=== PATIENT | female | born 1985 | race Caucasian/White ===

== ENCOUNTER 2025-01-25 23:51 | Emergency (ER) | payer OTHER, SELFPAY ==
[2025-01-25 23:53] VITALS: BP 133/81; PULSE 99; RESP 18; TEMP 36.9; O2SAT 99; BMI 29.6
--- NOTE | 2025-01-26 00:30 | ED_ITS ---
HPI - General Adult General Date Seen: 01/26/25 Chief complaint: Ear/Nose/Throat Problem Stated complaint: Left ear ringing, loss of hearing Time Seen by Provider: 01/25/25 23:52 History of Present Illness HPI narrative: patient is a 39-year-old woman who presents for evaluation of her left ear. She says for the past 4-6 months she has been having problems with her ears. She has a history of psoriasis, has and has felt like she has psoriasis in her ears. They have felt irritated, sometimes painful, and swollen. She says that she uses Q-tips to scratch inside her ears. For the past couple of hours she says she has developed decreased hearing in the left ear associated with tinnitus. She also has pain in that ear, which seems to radiate into her jaw as well as behind the ear. She has not had fevers, has maybe had a little drainage from the ear and is worried that she might have ruptured her eardrum. She said she has had problems with reaming before, but the hearing loss is new. She does not recall her medicines but takes a couple for psoriasis and an antidepressant. Denies other significant medical history. Related Data Previous Rx's ?Medication ?Instructions ?Recorded [id number]-[id number]-[id number]-onzonm 3.3 4 drp Otic (ear-left) QID #10 mL 01/26/25 mg-3 mg-10 mg-0.5 mg/mL ear drops,susp (Cortisporin-TC) prednisone 20 mg tablet See Rx Instructions .Route 01/26/25 .COMPLEX #18 tabs Allergies Allergy/AdvReac Type Severity Reaction Status Date / Time No Known Drug Allergies Allergy Verified 01/25/25 23:57 PFSH PFS Social History Non-prescribed substance use: denies use Exam Narrative: Exam Narrative: Vital signs reviewed In general, alert, nontoxic woman. She looks comfortable at this time. Head: Normocephalic, atraumatic. Eyes: Pupils are equal reactive, sclera clear. ENT: The right canal and TM really look normal. On the left, there is a little bit of inflammation and mild swelling of the canal, there is a little bit of wax but certainly no impaction. The visualized eardrum looks normal, I do not see a perforation. I do not see significant rash, debris or drainage. The TM is normal in appearance. She notes decreased gross hearing in the left ear compared to the right. Dentition is intact without obvious tenderness or swelling. Neck: Supple, no adenopathy. Const: Vital Signs, click to edit/add: Vital Signs - 24 hr 01/25/25 23:53 Temperature 98.4 F Pulse Rate [Left P ulse Oximeter] 99 Respiratory Rate 18 Blood Pressure [Ri ght Upper Arm] 133/81 Pulse Oximetry 99 Oxygen Delivery Me thod Room Air Course Course ED Course: Discussed with her that I do not have a clear explanation for her tinnitus and hearing loss based on her exam. I would recommend that we put her on some prednisone to treat that portion of her symptoms in case that is separate from the more external ear symptoms that she has been having for the past 4-6 months. I will prescribe some antibiotic drops for the mild inflammatory stuff that I see in the left auditory canal. I recommended that she follow up with ENT and have auditory testing. Ibuprofen and/or Tylenol as needed for pain. Also recommended making an appointment with the dentist just to make sure the pain is not coming from a dental problem. Return any time for acute worsening or new symptoms. Vital Signs Vital signs: Initial Vital Signs Temperature 98.4 F 01/25/25 23:53 Temperature Source Temporal Artery Scan 01/25/25 23:53 Pulse Rate 99 01/25/25 23:53 Pulse Rhythm Regular 01/25/25 23:53 Respiratory Rate 18 01/25/25 23:53 Blood Pressure 133/81 01/25/25 23:53 Blood Pressure Mean 98 01/25/25 23:53 Blood Pressure Position Sitting 01/25/25 23:53 Pulse Oximetry 99 01/25/25 23:53 Oxygen Delivery Method Room Air 01/25/25 23:53 Vital Signs Temperature 98.4 F 01/25/25 23:53 Pulse Rate 99 01/25/25 23:53 Respiratory Rate 18 01/25/25 23:53 Blood Pressure 133/81 01/25/25 23:53 Pulse Oximetry 99 01/25/25 23:53 Oxygen Delivery Method Room Air 01/25/25 23:53 Temperature 98.4 F 01/25/25 23:53 Pulse Rate 99 01/25/25 23:53 Respiratory Rate 18 01/25/25 23:53 Blood Pressure 133/81 01/25/25 23:53 Pulse Oximetry 99 01/25/25 23:53 Oxygen Delivery Method Room Air 01/25/25 23:53 Discharge Plan Discharge Clinical Impression: Otitis externa, Hearing loss Patient Disposition: Home, Self-Care Condition: Stable Instructions: Swimmer's Ear (ED), Hearing Loss (ED) Additional Instructions: Cortisporin drops as prescribed. prednisone taper as follows: 3 tablets daily for 3 days, then 2 tablets daily for 3 days, then 1 tablet daily for 3 days. Given the hearing loss, I would recommend that you are followed up by ENT. You can call [phone] Dupont. ibuprofen 400 mg plus Tylenol 1000 mg 3 times daily as needed for pain. Take this with food to minimize stomach upset. Return any time for significantly worsening pain, fevers, or other new symptoms. Activity Level: No Restrictions Discharge Diet: Regular Prescriptions: New prednisone 20 mg tablet See Rx Instructions .ROUTE .COMPLEX Qty: 18 0RF Rx Instructions: 3 tabs daily for 3 days then 2 tabs daily for 3 days then 1 tab daily for 3 days Cortisporin-TC 3.3-3-10-0.5 mg/mL drops,suspension 4 drp Otic (ear-left) QID Qty: 10 0RF Stand Alone Forms: [employer] Info Instructions
--- OUTSIDE RECORDS SUMMARY | 2025-01-26 00:34 | XMS_ITS | Encounter Summary ---
Author Organization [facility] Address [address] [place] [address] Care Team Providers Care Materials Research Engineer Name Role Phone June Frye MD Primary Care Provider Kendy Mckeon PA-C Primary Care Provider + Manuel Kim MD Primary Care Provider Manuel Kim MD Unavailable Manuel Kim MD Unavailable Reason for Visit * Reason Onset Date Comments Refill Request 02/09/2010 Encounter Details Date Type Department Care Team (Late st Contact Info) Description 02/09/[address] [phone] June Frye MD [address] [place], [place] [phone] Refill Request Social History Tobacco Use Types Packs/Day Years Used Date Smoking Tobacco: Every Day Cigarettes 0.5 6 Comments:one or 2 a day, on chantax Alcohol Use Standard Drinks/Week Comments Yes 0 (1 standard drink = 0.6 oz pur e alcohol) 6-7 drinks/week Comments No Sex and Gender Information Value Date Recorded Sex Assigned at Not on file Legal Sex Female 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 Gender Identity Not on file Sexual Orientation Not on file 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 Not on file Not on file Not on file Not on file Not on file Not on file Not on file documented as of this encounter Miscellaneous Notes * Telephone Encounter - Jana Hartley - 02/10/2010 12:17 PM CDT Last PHQ-9 score on record= 9 PHQ-9 (scale: 0 to 3) 01/06/2009 No interest in doing things 2 Feeling Depressed 1 Trouble sleeping 0 Tired / No energy 1 No appetite or over-eating 2 Feeling bad about self 1 Trouble concentrating 1 Moving slow or restless 1 Suicidal thoughts 0 TOTAL SCORE-----> 9 Unable to fill per STO, will forward to provider for review. Jana Hartley RN * Telephone Encounter - Phyllis Gross - 02/09/2010 10:47 AM CDT Last office visit 01/06/09 last filled 01/24/10 Phyllis Gross CMA documented in this encounter Plan of Treatment Not on file documented as of this encounter Visit Diagnoses Diagnosis DEPRESSIVE DISORDER NEC Depressive disorder, not elsewhere classified documented in this encounter Care Teams Materials Research Engineer Relationship Specialty Start Date End Date June Frye MD [address] [place] [address] PCP - General 07/15/03 12/15/15 Kendy Mckeon PA-C [address] [place] [id number] PCP - General Physician Fur Glazer 12/16/15 07/19/16 Manuel Kim MD [address] [place] [id number] PCP - General Family Practice 07/20/16 Manuel Kim MD [address] [facility] [place] [id number] PCP - Assigned PCP 07/23/16 01/14/19 Manuel Kim MD [address] [facility] [place] [id number] Assigned PCP 07/23/16 03/05/21 documented as of this encounter
--- OUTSIDE RECORDS SUMMARY | 2025-01-26 00:34 | XMS_ITS | Clinical Summary ---
Author Organization [facility] Address [address] [address] Phone Care Team Providers Care Home Organizer Name Role Phone Choice, No Pcp-Patient Primary Care Provider Yvette vailable Allergies No known active allergies Medications albuterol HFA (Proair HFA, Ventolin HFA) 108 (90 Base) MCG/ACT inhalation aerosol Inhale 2 Puffs into the lungs four times a day as needed. 8 Active ALPRAZolam (Xanax) 0.5 MG tablet TAKE ONE (1) TABLET BY MOUTH ONCE A DAY, NEEDED FOR ANXIETY 0 Active lamoTRIgine (LaMICtal) 200 MG tablet Take 200 mg by mouth one time a day. 9 Active lisdexamfetami ne (VYVANSE) 40 MG capsule Take 40 mg by mouth every morning. Take in the morning with or without food; swallow capsule whole, do not chew. Active tretinoin (Retin-A) 0.01 % gel Apply topically at bedtime. 1 Active venlafaxine (Effexor-XR) 75 MG 24 hour extended release capsule Take 75 mg by mouth one time a day. 2 Active venlafaxine (Effexor-XR) 37.5 MG 24 hour extended release capsule Take 37.5 mg by mouth one time a day. 2 Active HYDROcodone-ac etaminophen (Hubbard) 5-325 MG oral tablet Take 1-2 Tablets by mouth every six hours as needed for Pain . Limit acetaminophen to 4000 mg per day from all sources. 10 Tablet 2 Active Active Problems Problem Noted Date Diagnosed Date Bipolar disorder 04/25/2022 Overview (04/25/2022): treated with celexa Chronic post-traumatic headache, not intractable 03/14/2019 Closed head injury with concussion 03/14/2019 Chronic bilateral low back pain with right-sided sciatica 08/05/2018 Neck pain, chronic 08/05/2018 Tobacco use disorder 08/05/2018 Migraine syndrome 04/09/2018 Moderate persistent asthma without complication 01/24/2017 Borderline personality disorder 12/16/2015 Depression, major, recurrent, moderate 2 JACOB (generalized anxiety disorder) 10/17/2012 Social History Tobacco Use Types Packs/Day Years Used Date Smoking Tobacco: Every Day Cigarettes Smokeless Tobacco: Never Alcohol Use Standard Drinks/Week Comments Not Currently 0 (1 standard drink = 0.6 oz pur e alcohol) Comments No Sex and Gender Information Value Date Recorded Sex Assigned at Not on file Legal Sex Female 4:47 PM CDT Gender Identity Not on file Sexual Orientation Not on file Obstetrics History Last Filed Vital Signs Vital Sign Reading Time Taken Comments Blood Pressure 126/82 06/16/2022 7:55 PM CDT Pulse 100 06/16/2022 7:55 PM CDT Temperature 36.5 C (97.7 F) 06/16/2022 7:55 PM CDT Respiratory Rate 18 06/16/2022 7:55 PM CDT Oxygen Saturation 99% 06/16/2022 7:55 PM CDT Inhaled Oxygen Concentration - - Weight 70.3 kg (155 lb) 06/16/2022 9:59 AM CDT Height 152.4 cm (5') 06/16/2022 9:59 AM CDT Body Mass Index 30.27 06/16/2022 9:59 AM CDT Plan of Treatment Health Maintenance Due Date Last Done Comments Cervical Cancer Screening 1985 Last pap w/ HPV Testing 1985 Last pap w/o HPV Testing 1985 ASTHMA CONTROL TEST 1990 Hepatitis B Vaccine (Standin g Order) (1 of 3 - 19+ 3-dose series) 02/02/2004 PERTUSSIS (Standing Order) 02/02/2004 Pneumococcal/PCV20 Vaccine: Pediatrics (2-5 yrs) and At-Risk Patients (6-49 yrs) (Standing Order) (1 of 2 - PCV) 02/02/2004 TETANUS (Standing Order) 02/02/2004 COVID-19 Vaccine ( - 2023-2 5 season) 2024 Influenza Vaccine Seasonal (Standing Order) (#1) 2024 HPV Vaccine (Standing Order) Aged Out No longer eligible based on patient's age to complete this topic Insurance MEDICA[place] [employer] [place] Care Teams Home Organizer Relationship Specialty Start Date End Date Choice, No Pcp-Patient PCP - General 06/16/22
--- OUTSIDE RECORDS SUMMARY | 2025-01-26 00:34 | XMS_ITS | Encounter Summary ---
Author Organization [facility] Address [address] [place] [address] Care Team Providers Care Public Address System Mechanic Name Role Phone Eliza Perez APRN, C.N.P. Primary Care Pro vider Reason for Visit * Reason Comments Med Refill Encounter Details Date Type Department Care Team (Late st Contact Info) Description 01/23/2025 Refill Department of Family Medicine in [place], [place] [address] [place] [phone] Eliza Perez APRN, C.N.P. [address] [place] [phone] Med Refill Social History Tobacco Use Types Packs/Day Years Used Date Smoking Tobacco: Some Days Cigarettes Passive Smoke Exposure: Current Smokeless Tobacco: Never Alcohol Use Standard Drinks/Week Comments Not Currently 0 (1 standard drink = 0.6 oz pur e alcohol) [facility] Utilities Answer Date Recorded In the past 12 months has [place], gas, oil, or water [employer] threatened to shut off services in your home? Yes 03/11/2024 PHQ-2 Answer Date Recorded PHQ-2 Score 2 03/11/2024 Exercise Vital Sign Answer Date Recorde d On average, how many days pe r week do you engage in moderate to strenuous exercise (like a brisk walk)? Patient declined On average, how many minutes do you engage in exercise at this level? Patient declined 03/11/2024 Hunger Vital Sign Answer Date Recorded Within the past 12 months, y ou worried that your food would run out before you got the money to buy more. Sometimes true Within the past 12 months, t he food you bought just didn't last and you didn't have money to get more. Sometimes true Depression Answer Date Recor ded PHQ-9 Total Score (max 27) 10 03/11 Nutrition Answer Date Recorded On average, how many serving s of fruits and vegetables do you eat per day (serving size is equal to 1 cup or approximately the size of a tennis ball)? 0-2 03/11/2024 Dental Answer Date Recorded Dental: Regular Dentist No 03/11/20 Employment Answer Date Recorded Employment status Employed and actively working without restrictions 03/11/2024 Housing Stability Answer Date Recorded What is your living situation today? I have a [facility] place to live 03/11/2024 Comments Unknown Sex and Gender Information Value Date Recorded Sex Assigned at Female 03/11/2024 1:36 PM CDT Legal Sex Female 3:11 PM CDT Gender Identity Female 03/11/2024 1:36 PM CDT Sexual Orientation Straight 03/11/2024 1: 36 PM CDT documented as of this encounter Miscellaneous Notes * Telephone Encounter - Liza Scott - 01/23/2025 12:16 PM CDT Recent Visits Date Type Provider Dept 07/08/24 Office Visit Prachi Emery APRN, C.N.P. [facility] 03/11/24 Comprehensive Visit Eliza Perez APRN, C.N.P. [facility] Showing recent visits within past 365 days with a meds authorizing provider and meeting all other requirements Future Appointments No visits were found meeting these conditions. Showing future appointments within next 90 days with a meds authorizing provider and meeting all other requirements documented in this encounter Plan of Treatment Not on file documented as of this encounter Visit Diagnoses Diagnosis Hemorrhoids documented in this encounter Additional Health Concerns Assessment Noted Time PHQ-9 Depression Total Score: 10 024 1:33 PM CDT documented as of this encounter Care Teams Public Address System Mechanic Relationship Specialty Start Date End Date Eliza Perez APRN, C.N.P. [address] [place] [phone] PCP - General Family Medicine 03/12/24 documented as of this encounter
--- OUTSIDE RECORDS SUMMARY | 2025-01-26 00:35 | XMS_ITS | Clinical Summary ---
Author Organization [facility] Address [address], [place] [address] Care Team Providers Care Checker Product Design Name Role Phone Gaby Villatoro APRN, WON Primary Care Provid er Source Comments You are receiving this document as you are listed as the primary care provider,follow-up provider, or the patient has been referred to you for consultation.This is in compliance with the Medicare andMedicaid EHR Incentive Program,which states Providers who transition their patient to another setting of careor provider of care or refers their patient to another provider of care shouldprovide summary care record for each transition of care or referral. [facility] Allergies No known active allergies Medications * This document contains information received from the source organization and may not represent a complete record from that organization. varenicline (AKA CHANTIX) 0.5 MG tabletIndicati ons:Tobacco abuse (HRC) Take 1 tablet by mouth 2 times daily. 60 tablet 0 3 Active fluticasone (AKA FLONASE) 50 MCG/ACT nasal solutionIndica tions:Rhinitis , allergic Place 1-2 sprays into each nostril daily (every 24 hours). 16 g 11 3 Active citalopram (AKA CELEXA) 40 MG tabletIndicati ons:Depression , major, recurrent, moderate (HRC) Take 1 tablet by mouth daily (every 24 hours). 90 tablet 4 3 Active montelukast (AKA SINGULAIR) 10 MG tabletIndicati ons:Reactive airway disease (HRC) Take 1 tablet by mouth every evening. 30 tablet 11 3 Active etonogestrel (NEXPLANON) 68 MG implant Inject 68 mg subcutaneously once. Active ALBUterol sulfate HFA 108 (90 BASE) MCG/ACT inhaler Inhale 1-2 Puffs every 4 hours as needed for Wheezing or Shortness of Breath (Take 1-2 puffs as instructed every 4 hours as needed.). 1 Inhaler 11 7 Active Active Problems Problem Noted Date Diagnosed Date Tobacco abuse 10/17/2012 JACOB (generalized anxiety disorder) 10/17/2012 Depression, major, recurrent, moderate 2 Asthma 09/13/2010 Overview (07/04/2017): LW Modifier: Intermittent ; Asthma Chronic Resolved Problems Problem Noted Date Diagnosed Date Resolved Date Supervision of normal first 11/15/2012 03/05/2013 Immunizations Immunization Administration Dates Next Due Flu Vac Preserv Free (3+yrs) 11/18/2012 Tdap 07/19/2017 Family History Relation Name Status Comments Father Alive Mother Alive Brother 1 Alive Brother 2 Alive Social History Tobacco Use Types Packs/Day Years Used Date Smoking Tobacco: Every Day Cigarettes Smokeless Tobacco: Never Tobacco Cessation:Ready to Q uit: No; Counseling Given: No Comments:Smoking History Packs/day: Alcohol Use Standard Drinks/Week Comments Yes 1.7 (1 standard drin k = 0.6 oz pure alcohol) Alcoholic Drinks/day: Amount:3-4 drinks; Freq:2-4/Month ; Comments No Sex and Gender Information Value Date Recorded Sex Assigned at Not on file Legal Sex Female 5:19 AM CDT Gender Identity Not on file Sexual Orientation Not on file 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 Not on file Not on file Last Filed Vital Signs Vital Sign Reading Time Taken Comments Blood Pressure 122/86 07/19/2017 10:39 AM CDT Pulse 101 07/19/2017 10:39 AM CDT Temperature 36.4 C (97.6 F) 07/19/2017 10:39 AM CDT Respiratory Rate - - Oxygen Saturation - - Inhaled Oxygen Concentration - - Weight 72.6 kg (160 lb) 07/19/2017 10:39 AM CDT Height 151.8 cm (4' 11.75) 07/03/2013 8:08 AM C DT Body Mass Index 31.51 07/03/2013 8:08 AM CDT Plan of Treatment Health Maintenance Due Date Last Done Comments Hep C Screening (Preventive Services) 1985 Adult Preventive Visit 2003 HepB (1) 02/02/2004 HPV Vaccine (3 - 3-dose series) 03/31/2009 01/06/2009, 05/23/2007 Cervical Cancer Screening Due 07/04/2013 07/03/2013 Asthma ACT (score of 20 or higher) 07/19/2018 07/19/2017 COVID-19 Vaccine ( - 2023-2 5 season) 2024 Influenza (#1) 2024 11/18/2012 DTaP/Tdap/Td (4 - Tdap) 07/19/2027 07/19/20 17, 05/18/2008, 05/26/1997 Zoster/Shingles (1 of 2) 2035 HepA Aged Out 01/06/2009, 05/23/2007 No longer eligible based on patient's age to complete this topic HIV Screening (Preventive Services) Completed 10/08/2020, 11/15/2012 Hib Aged Out No longer eligi ble based on patient's age to complete this topic IPV (Polio) Aged Out No longer eligi ble based on patient's age to complete this topic MCV4 Aged Out No longer eligi ble based on patient's age to complete this topic Meningococcal B Aged Out No longer el igible based on patient's age to complete this topic Pneumococcal Aged Out No longer eligi ble based on patient's age to complete this topic Procedures Procedure Name Priority Date/Time Associated Diagnosis Comments ANATOMICAL PATH LIQUID BASED Routine 07/03/2013 8:34 AM CDT HIV ANTIBODY Routine 11/15/2012 2:58 PM WAREHOUSE SHIPPER Special screening examination for other specified viral diseases Screening examination for venereal disease from Last 3 Months or Most Recently Relevant to Health Maintenance Results * Pap Smear (07/03/2013 8:34 AM CDT) 07/03/2013 8:34 AM CDT Narrative HP CONVERSION - 07/09/2013 11:04 AM CDT FINAL GYNECOLOGICAL CYTOLOGY REPORT Pathology #: [id number] Date Obtained: 07/03/2013 Date Received: 07/04/2013 INTERPRETATION/RESULTS: Negative for Intraepithelial Lesion or Malignancy COMMENTS: HPV results to follow. SPECIMEN ADEQUACY: Satisfactory for Evaluation. Endocervical cells/transformation zone component present. Verified on 07/09/2013 by TIM HERNANDEZ(ASCP) (electronic signature) CLINICAL NOTES: LMP: 06/24/13 LIQUID BASED PAP SMEAR SPECIMEN TYPE: CERVICAL & HPV REGARDLESS OF PAP RESULT PLEASE NOTE: The pap smear is a screening test designed to aid in the detection of cervical cancer and its precursor lesions. It is not a diagnostic procedure and should not be used as the sole means of detecting cervical cancer. Both false-positive and false-negative reports may occur. End of Report Gaby Villatoro APRN, CNP LAB_1 Deepali weir Result Performing Organization Address [facility] Co de Phone Number HP CONVERSION * HIV ANTIBODY (11/15/2012 2:58 PM WAREHOUSE SHIPPER) HIV 1/HIV 2 Non-React Non-Reacti ve HP CONVERSION 11/15/2012 2:58 PM WAREHOUSE SHIPPER 11/15/2012 9:14 PM WAREHOUSE SHIPPER Eliza Pantoja MD LAB_1 Final Result Performing Organization Address [facility] Co de Phone Number HP CONVERSION from Last 3 Months or Most Recently Relevant to Health Maintenance [place] [phone] Care Teams Checker Product Design Relationship Specialty Start Date End Date Gaby Villatoro, CHUCKING MACHINE SET UP OPERATOR, RN DERMATOLOGY [address] [place], [place] [phone] PCP - General 07/03/13
--- OUTSIDE RECORDS SUMMARY | 2025-01-26 00:35 | XMS_ITS | Clinical Summary ---
Author Organization [facility] Address [address] [place] [address] Care Team Providers Care Seo Associate Name Role Phone Eliza Perez APRN C.N.P. Primary Care Pro vider Source Comments Patient records contain information from all sites at [facility]. For routine questions regarding patient records, call [phone] during business hours, M-F 8:00 AM - 5:00 PM Central Time. Record requests for emergency care only can be directed to [phone] at any time.[facility] Allergies No known active allergies Medications ALPRAZolam (XANAX) 0.5 mg tablet Take 0.5 mg by mouth 2 (two) times a day as needed. 04/21/20 20 Active clobetasoL (TEMOVATE) 0.05 % ointment Apply 1 Application topically 2 (two) times a day as needed. 07/06/20 23 Active tretinoin (RETIN-A) 0.05 % cream Apply 1 Application topically at bedtime. 01/29/20 18 Active clindamycin (CLEOCIN T) 1 % lotion Apply 1 Application topically daily. Active fluocinonide (LIDEX) 0.05 % external solution Apply 1 Application topically daily. Active fluocinolone (DERMA-SMOOTH E/FS) 0.01 % scalp oil Apply 1 Application topically as needed. 03/06/20 24 Active lamoTRIgine (LaMICtaL) 150 mg tablet Take 1 tablet by mouth daily. 02/29/20 24 Active Vyvanse 50 mg capsule Take 50 mg by mouth every morning. 01/11/20 24 Active QUEtiapine (SEROquel) 25 mg tablet Take 25 mg by mouth as needed. 05/03/20 23 Active tretinoin (Retin-A) 0.025 % cream Apply 1 Application topically at bedtime. 04/01/20 23 Active venlafaxine XR (EFFEXOR-XR) 150 mg 24 hr capsule Take 150 mg by mouth every morning. Active albuterol 90 mcg/actuation inhaler Inhale 1-2 puffs every 4 (four) hours as needed for wheezing. 18 g 3 03/11/20 24 Active metroNIDAZOLE (FLAGYL) 500 mg tablet Take 1 tablet (500 mg total) by mouth 2 (two) times a day. 14 tablet 03/13/20 24 Active Additional Information Patient not taking.Reported on 07/08/2024 Vyvanse 60 mg capsule TAKE ONE CAPSULE BY MOUTH EVERY MORNING EARLIEST FILL DATE 06/16/24 06/26/20 24 Active doxycycline hyclate (Vibramycin) 100 mg capsuleIndica tions:Follicu litis Take 1 capsule (100 mg total) by mouth 2 (two) times a day. 20 capsule 07/08/20 24 Active hydrocortison e (Anusol-HC) 25 mg suppositoryIn dications:Hem orrhoids Insert 1 suppository (25 mg total) into the rectum 2 (two) times a day. 24 suppository 07/08/20 24 Active sennosides-do cusate sodium (Senna with Docusate Sodium) 8.6-50 mg per tabletIndicat ions:Hemorrho ids Take 1 tablet by mouth at bedtime as needed for constipation. 60 tablet 3 07/08/20 24 Active nystatin (Nystop) 100,000 unit/gram powderIndicat ions:Tinea Groin Perianal Area Apply 1 Application topically 3 (three) times a day. Apply to rash 15 g 07/08/20 24 Active hydrocortison e (Hytone) 2.5 % creamIndicati ons:Hemorrhoi ds APPLY TO AFFECTED AREAS NEEDED FOR RASH. 30 g 2 01/24/20 25 Active hydrocortison e (Hytone) 2.5 % creamIndicati ons:Hemorrhoi ds APPLY TO AFFECTED AREA(S) NEEDED FOR RASH 30 g 2 10/16/20 24 2024 Discontinued Active Problems Problem Noted Date Diagnosed Date Bipolar Disorder 04/25/2022 Overview (03/19/2024): treated with celexa treated with celexa Psoriasis 07/05/2021 Deficiency Vitamin D 08/06/2018 Migraine Headache 04/09/2018 High Risk Human Papillomavir us Deoxyribonucleic Acid Test Positive Cervix 01/28/2018 Overview (03/19/2024): 01/28/18: NIL pap, + HR HPV (not 16 or 18) result. Plan cotest in 1 year. 02/05/19 Phone call to patient, she has transferred her care to another clinic, will plan to complete co-test there. Borderline Personality Disorder 12/16/2015 Anxiety Generalized Disorder 10/17/2012 Asthma 09/13/2010 Overview (03/19/2024): LW Modifier: Intermittent ; Asthma Chronic Encounters Date Type Department Care Team Description 01/23/2025 Refill Department of Family Medicine in [place], [place] [address] [place] [address] Eliza Perez APRN, C.N.P. Med Refill 11/24/2024 3:24 PM ARCHEOLOGIST - 11/24/2024 11:59 PM ARCHEOLOGIST Hospital Encounter Department of Laboratory Medicine in [place], [place] [address] [place] [address] Rosalia Orellana, F.N.P. Psoriasis Vulgaris; Dependence Nicotine Discharge Disposition: Home or Self Care from Last 3 Months Immunizations Immunization Administration Dates Next Due 4vHPV (discontinued) 01/06/2009,05/23/2007 9vHPV 01/06/2009,05/23/2007 HepA Adult 01/06/2009,05/23/2007 HepA, Unspecified 01/06/2009,05/23/2007 Td Preservative Free (TENIVAC, DECAVAC) 05/26/19 97 Tdap 07/19/2017,05/18/2008,05/23/2007 influenza trivalent vaccine (6 months and older)(PF) 11/18/2012 Social History Tobacco Use Types Packs/Day Years Used Date Smoking Tobacco: Some Days Cigarettes Passive Smoke Exposure: Current Smokeless Tobacco: Never Tobacco Cessation:Ready to Q uit: No; Counseling Given: Yes Alcohol Use Standard Drinks/Week Comments Not Currently 0 (1 standard drink = 0.6 oz pur e alcohol) [facility] Utilities Answer Date Recorded In the past 12 months has [employer], gas, oil, or water [employer] threatened to shut off services in your [...] Date Recorded Dental: Regular Dentist No 03/11/20 24 Employment Answer Date Recorded Employment status Employed and actively working without restrictions 03/11/2024 Housing Stability Answer Date Recorded What is your living situation today? I have a [facility] place to live 03/11/2024 Comments Unknown Sex and Gender Information Value Date Recorded Sex Assigned at Female 03/11/2024 1:36 PM CDT Legal Sex Female 3:11 PM CDT Gender Identity Female 03/11/2024 1:36 PM CDT Sexual Orientation Straight 03/11/2024 1: 36 PM CDT Last Filed Vital Signs Vital Sign Reading Time Taken Comments Blood Pressure 122/88 07/08/2024 11:24 AM CDT Pulse 89 07/08/2024 11:24 AM CDT Temperature 35.8 C (96.4 F) 07/08/2024 11:24 AM CDT Respiratory Rate 20 03/11/2024 1:19 PM CDT Oxygen Saturation 99% 07/08/2024 11:24 AM CDT Inhaled Oxygen Concentration - - Weight 70.8 kg (156 lb) 07/08/2024 11:24 AM CDT Height 151.1 cm (4' 11.5) 07/08/2024 11:24 AM C DT Body Mass Index 30.98 07/08/2024 11:24 AM CDT Plan of Treatment Health Maintenance Due Date Last Done Comments Hepatitis B Vaccines (1 of 3 - 19+ 3-dose series) 02/02/2004 HPV Vaccines (3 - 3-dose series) 03/31/2009 01/06/2009, 01/06/2009, 05/23/2007, Additional history exists Asthma Action Plan 03/19/2024 Asthma Control Test Questionnaire 03/19/2024 Asthma Management/Exacerbation Questionnaire (AMQ/AEQ) 03/19/2024 COVID-19 Vaccine ( - season) 2024 Influenza Vaccine (#1) 2024 11/18/2012 Depression Screening (Annual PHQ-2) 11/12/2024 Glucose Test for Med Monitoring 03/11/2025 03/11/2024, 04/25/2022, 09/25/2021, Additional history exists Pneumococcal vaccine (0-49 years) (1 of 2 - PCV) 03/11/2025 Postponed from 02/02/2004 (Patient Refused) Tobacco Cessation counseling 07/08/2025 07/08/2024 DTaP,Tdap,and Td Vaccines (5 - Td or Tdap) 07/19/2027 07/19/2017, 05/18/2008, 05/23/2007, Additional history exists Cervical/Vaginal Cancer Screening 03/11/2029 03/11/2024, 03/11/2024, 02/17/2019, Additional history exists Lipid (Cholesterol) Screening 05/06/2029 05/06/2024 HIV Screening Completed 07/08/2024, 03/11/2024 Hepatitis C Screening Completed 07/08/2024, 024 IPV Vaccines Aged Out No longer eligi ble based on patient's age to complete this topic Procedures Procedure Name Priority Date/Time Associated Diagnosis Comments QUANTIFERON-TB GOLD PLUS, B Routine 11/24/2024 3:36 PM ARCHEOLOGIST Psoriasis Vulgaris Dependence Nicotine HCV AB SCRN W/REFLEX TO HCV PCR, S Routine 07/08/2024 12:29 PM CDT Screening For Venereal Disease HIV-1/-2 AG AND AB SCREEN, PLASMA Routine 07/08/2024 12:29 PM CDT Screening For Venereal Disease LIPID PANEL, S Routine 05/06/2024 10:55 AM CDT Screening Lipid HPV WITH GENOTYPING, PCR, THINPREP Routine 03/11/2024 2:57 PM CDT COMPREHENSIVE METABOLIC PANEL, S/P Routine 03/11/2024 2:22 PM CDT Screening For Venereal Disease Psoriasis Fatigue from Last 3 Months or Most Recently Relevant to Health Maintenance Results * QuantiFERON-Tb Gold Plus, Blood (11/24/2024 3:36 PM ARCHEOLOGIST) [facility] QuantiFERON-TB Gold Plus Result Negative Negative 11/27/2024 2:27 PM ARCHEOLOGIST [facility] Comment: No interferon-gamma response to M. tuberculosis antigens was detected. Latent infection with M. tuberculosis is unlikely. A single negative result does not exclude infection with M. tuberculosis. In patients at high risk for M.tuberculosis infection, a second test should be considered in accordance with the 2017 ATS/IDSA/CDC Clinical Practice Guidelines for Diagnosis of Tuberculosis in Adults and Children [Roxy MARTINEZ et. al. Clin. Infect. Dis. 2017;64(2):111-115]. The reference range for the 'TB1 Ag minus Nil Result' and 'TB2 Ag minus Nil Result' is an Interferon-gamma level <0.35 IU/mL. TB1 Ag minus Nil Result 0.02 IU/mL 11/27/2024 2:27 PM ARCHEOLOGIST [facility] TB2 Ag minus Nil Result 0.00 IU/mL 11/27/2024 2:27 PM ARCHEOLOGIST [facility] Mitogen minus Nil Result >10.00 IU/mL 11/27/2024 2:27 PM ARCHEOLOGIST [facility] Nil Result 0.04 IU/mL 11/27/2024 2:27 PM ARCHEOLOGIST [facility] Blood (Blood, Venous) 11/24/2024 3:36 PM ARCHEOLOGIST 11/25/2024 8:12 PM ARCHEOLOGIST Narrative [facility] - 11/27/2024 2:27 PM ARCHEOLOGIST Specimen Information: Specimen ID: [id number] Specimen Type: Blood Specimen Collection Start Date: 11/24/2024 3:36 PM Specimen Received Date: 11/25/2024 8:12 PM Specimen ID: [id number] Specimen Type: Blood Specimen Collection Start Date: 11/24/2024 3:36 PM Specimen Received Date: 11/25/2024 8:12 PM Specimen ID: [id number] Specimen Type: Blood Specimen Collection Start Date: 11/24/2024 3:36 PM Specimen Received Date: 11/25/2024 8:12 PM Specimen ID: [id number] Specimen Type: Blood Specimen Collection Start Date: 11/24/2024 3:36 PM Specimen Received Date: 11/25/2024 8:12 PM Rosalia Mauro LAB MICROBIOLOGY - BLO OD ORDERABLES Final Result [facility] [address] [place] [address], [facility] in [address] [address] * HIV-1/-2 Ag and Ab Screen, Plasma (07/08/2024 12:29 PM CDT) HIV Ag/Ab Screen, P Negative Negative 07/08/2024 7:47 PM CDT [facility] Comment: Negative result does not rule out HIV infection. If exposure to HIV infection occurred <14 days ago, contact the laboratory to request addition of HIV-1/HIV-2 RNA detection, Plasma (HIP12). HIV-1 p24 Ag Screen, P Negative Negative 07/08/2024 7:47 PM CDT [facility] Comment: Negative result does not rule out HIV infection. If exposure to HIV infection occurred <14 days ago, contact the laboratory to request addition of HIV-1/HIV-2 RNA detection, Plasma (HIP12). HIV-1 Ab Screen, P Negative Negative 07/08/2024 7:47 PM CDT [facility] Comment: Negative result does not rule out HIV infection. If exposure to HIV infection occurred <14 days ago, contact the laboratory to request addition of HIV-1/HIV-2 RNA detection, Plasma (HIP12). HIV-2 Ab Screen, P Negative Negative 07/08/2024 7:47 PM CDT [facility] Comment: Negative result does not rule out HIV infection. If exposure to HIV infection occurred <14 days ago, contact the laboratory to request addition of HIV-1/HIV-2 RNA detection, Plasma (HIP12). Blood (Blood, Venous) 07/08/2024 12:29 PM CDT 07/08/2024 6:26 PM CDT Prachi Emery APRN, C.N.P. LAB MICROBIOLOGY - BL OOD ORDERABLES Final Result [facility] [address] [place] [address], [facility] [place] [address] [place] [address] * HCV Ab Scrn w/Reflex to HCV PCR, Serum (07/08/2024 12:29 PM CDT) HCV Ab Screen, S Negative Negative 07/08/2024 6:12 PM CDT [facility] Blood (Blood, Venous) 07/08/2024 12:29 PM CDT 07/08/2024 5:[address] [facility] - 07/08/2024 6:12 PM CDT Specimen Information: Specimen ID: [id number] Specimen Type: Blood Specimen Collection Start Date: 07/08/2024 12:29 PM Specimen Received Date: 07/08/2024 5:14 PM Specimen ID: [id number] Specimen Type: Blood Specimen Collection Start Date: 07/08/2024 12:29 PM Specimen Received Date: 07/08/2024 5:12 PM us Prachi Emery APRN, C.N.P. LAB MICROBIOLOGY - BL OOD ORDERABLES [place] [address], [facility] in [place] [address] [place] [address] * (ABNORMAL) Lipid Panel (05/06/2024 10:55 AM CDT) Triglycerides 254(H) mg/dL 05/06/2024 4:06 PM CDT NPR Comment: ----REFERENCE VALUE---- Normal: <150 mg/dL Borderline High: 150-199 mg/dL High: 200-499 mg/dL Very High: > or =500 mg/dL Cholesterol, Total 202(H) mg/dL 2023 4:06 PM CDT NPRG Comment: ----REFERENCE VALUE---- Desirable: < 200 mg/dL Borderline High: 200 - 239 mg/dL High: > or = 240 mg/dL Cholesterol, LDL, Calculated 108 mg/dL 05/06/2024 4:06 PM CDT NPRG Comment: ----REFERENCE VALUE---- Desirable: <100 mg/dL Above Desirable: 100-129 mg/dL Borderline High: 130-159 mg/dL High: 160-189 mg/dL Very High: >=190 mg/dL ----ADDITIONAL INFORMATION---- LDL cholesterol calculated using the Garzon/NIH equation. Cholesterol, HDL 51 >=50 mg/dL 05/06/2024 4:06 PM CDT NPRG Cholesterol, Non-HDL, Calculated 151 mg/dL 05/06/2024 4:06 PM CDT NPRG Comment: ----REFERENCE VALUE---- Desirable: <130 mg/dL Above Desirable: 130-159 mg/dL Borderline High: 160-189 mg/dL High: 190-219 mg/dL Very High: > or =220 mg/dL Fasting (8 HR or more) Unknown 05/06/2024 10:55 AM CDT [facility] Blood (Blood, Venous) 05/06/2024 10:55 AM CDT 05/06/2024 3:36 PM CDT us Eliza Perez APRN, C.N.P. LAB BLOOD ADD-ON Final Result [facility] [address] [place] [address], [facility] NPRG [place] [address] [place] [address] * HPV with Genotyping, PCR, ThinPrep (03/11/2024 2:57 PM CDT) Pathologist [facility] HPV with Genotyping, ThinPrep, PCR Negative Negative 03/12/2024 3:31 PM CDT [facility] Comment: Negative for high risk HPV by nucleic acid amplification. The following high risk HPV types were not detected: 16, 18, 31, 33, 35, 39, 45, 51, 52, 56, 58, 59, 66, and 68 This result does not rule out HPV in the patient, as the sensitivity of the test depends on the timing of the specimen collection and the quality of the specimen. Result should be correlated with patient's history, clinical presentation, and PRODUCT MANAGER cytology report. 03/11/2024 2:57 PM CDT 03/12/2024 7:58 AM CDT us Eliza Perez APRN, C.N.P. LAB MICROBIOLOGY - GENERAL ORDERABLES Final Result [facility] [address] [place] [address], [facility] [address] [facility] [address] [place] [address] * (ABNORMAL) Comprehensive Metabolic Panel (03/11/2024 2:22 PM CDT) Potassium, P 4.0 3.6 - 5.2 mmol/L 03/11/2024 7:42 PM CDT NPR[facility] Sodium, P 134(L) 135 - 145 mmol/L 03/11/2024 7:42 PM CDT NPR[facility] Chloride, P 98 98 - 107 mmol/L 03/11/2024 7:42 PM CDT NPRG Bicarbonate, P 27 22 - 29 mmol/L 03/11/2024 7:42 PM CDT NPRG Anion Gap, P 9 7 - 15 03/11/2024 7:42 PM CDT NPR[facility] BUN (Blood Urea Nitrogen), P 14 6 - 21 mg/dL 03/11/2024 7:42 PM CDT NPRG Creatinine 0.78 0.59 - 1.04 mg/dL 03/11/2024 7:42 PM CDT NPRG Estimated GFR (eGFR) >90 >=60 mL/min/BS A 03/11/2024 7:42 PM CDT NPRG Comment: Estimated GFR calculated using the 2020 CKD_EPI creatinine equation. Calcium, Total, P 9.2 8.6 - 10.0 mg/dL 03/11/2024 7:42 PM CDT NPRG Glucose, P 102 70 - 140 mg/dL 03/11/2024 7:42 PM CDT NPRG Protein, Total, P 7.0 6.3 - 7.9 g/dL 03/11/2024 7:42 PM CDT NPRG Albumin, P 4.3 3.5 - 5.0 g/dL 03/11/2024 7:42 PM CDT NPRG Aspartate Aminotransferase (AST), P 27 8 - 43 U/L 03/11/2024 7:42 PM CDT [facility] Alkaline Phosphatase, P 70 35 - 104 U/L 03/11/2024 7:42 PM CDT NPR[facility] Alanine Aminotransferase (ALT), P 22 7 - 45 U/L 03/11/2024 7:42 PM CDT NPRG Bilirubin, Total, P 0.2 0.0 - 1.2 mg/dL 03/11/2024 7:42 PM CDT NPR[facility] Blood (Blood, Venous) 03/11/2024 2:22 PM CDT 03/11/2024 7:01 PM CDT Eliza Perez APRN, C.N.P. LAB BLOOD ADD-ON Final Result [facility] [address] [place] [address], [facility] NPRG [facility] [address] [place] [address] from Last 3 Months or Most Recently Relevant to Health Maintenance Insurance [employer] Care Teams Seo Associate Relationship Specialty Start Date End Date Eliza Perez APRN, C.N.P. [address] [place] [address] PCP - General Family Medicine 03/12/24
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
--- OUTSIDE RECORDS SUMMARY | 2025-01-26 00:35 | XMS_ITS | Encounter Summary ---
Author Organization [place] Address [address] [facility] 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) [address] [id number] Marielena Souza MD Social History Tobacco Use Types Packs/Day Years Used Date Smoking Tobacco: Every Day Cigarettes 0.5 6 Alcohol Use Standard Drinks/Week Comments Yes 0 (1 standard drink = 0.6 oz pur e alcohol) 6-7 drinks/week Comments No Sex and Gender Information Value Date Recorded Sex Assigned at Not on file 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 It is located in the throat. The symptom is described as acute, acute, constant, interrupts sleep and productive. The symptom is gradual in onset, gradual in onset and ongoing and ongoing. The symptom started 1 months ago. The complaint moderately limits activities. The frequency of episodes is daily. In addition, she presented with sore throat. It is located on the left. The symptom is described as acute, stabbing and throbbing. The symptom is gradual in onset, gradual in onset and ongoing and ongoing. The symptom started 4 days ago. The complaint limits oral intake. The frequency of episodes is daily. The patient also presented with ear ache. It is located on the left. The symptom is described as acute, acute and sharp. The symptom is gradual in onset and ongoing. The symptom started 1 days ago. The complaint is moderate. The frequency of episodes is daily. Current Medication: Citalopram 40 mg Tab, 1 Tablet(s), PO and daily. ROS: Constitutional: The patient complained of fatigue, fever (14 d ago) and weight gain/obesity but denied insomnia, malaise, night sweats, recent illness and weight loss. Eyes: The patient denied eye discharge, eye pain, photophobia, vision change and visual disturbance. Ears/Nose/Throat/Neck: The patient complained of hoarseness, nasal discharge, otalgia, postnasal drip, sinus congestion and sore throat (glands swollen and painful) but denied dizziness, facial pain, headache and hearing loss. Respiratory: The patient complained of cigarette smoking, cough, orthopnea (or awakens gasping ) and passive smoking but denied asthma, dyspnea/shortness of breath, pleuritic pain, productive sputum, stridor and wheezing. Gastrointestinal: The patient denied abdominal pain, constipation, diarrhea, gastroesophageal reflux, hemorrhoids, melena, nausea and vomiting. Dermatologic: The patient denied itching and rash. Endocrine: The patient denied diabetes mellitus type 1, diabetes mellitus type 2, goiter and polyuria. Vital Signs: data collected on 02/23/2011 01:27:24 PM by Maura Mcpherson weight is 148 pounds 1.92 ounces clothed height is 5 feet body mass index is 28.92 Kg/m2 sitting heart rate is 84 bpm regular blood pressure at Left Arm while Sitting is 108/62 mmHg PE: Constitutional: GENERAL APPEARANCE: Overall: well nourished, well developed and in no acute distress Nourishment: obese-gynecoid; Evidence of Distress: fatigued. Eyes: CONJUNCTIVA/EYELIDS: Overall: conjunctiva clear, cornea clear and eyelids normal. Ears/Nose/Throat: EXTERNAL EAR: Overall: normal appearance; EXTERNAL NOSE: Overall: benign appearance, no masses and non-tender; OTOSCOPIC EXAM: Overall: external auditory canals clear and tympanic membranes clear. Neck: THYROID: Overall: normal size, normal consistency, nontender and no mass lesions; INSPECTION OF NECK: Overall: normal appearance and no carotid bruits. Respiratory: AUSCULTATION: Overall: breath sounds clear bilaterally; RESPIRATORY EFFORT/RHYTHM: Overall: no retractions and normal rate. Cardiovascular: AUSCULTATION OF HEART: Overall: regular rate, regular rhythm, normal heart sounds and no murmurs. Lymphatic: NECK NODES: Overall: anterior cervical chain benign and posterior cervical chain benign Left anterior cervical chain: number of palpable nodes: 1, size (cm): 1.5, firm and tender; Right anterior cervical chain: number of palpable nodes: 1, size (cm): 1.5 and firm; OTHER NODES: Overall: occipital chain benign, auricular chain benign and supraclavicular chain benign. Integument: INSPECTION OF SKIN: Overall: no rash, lesions. Neurologic: MENTAL STATUS: Overall: alert and oriented; GAIT: Overall: no ataxia, no unsteadiness; COORDINATION: Overall: no tremors. Psychiatric: ORIENTATION/CONSCIOUSNESS: Overall: oriented to person, place and time. Dx: (466.0) - C - Bronchitis, acute (461.9) - C - Sinusitis, acute, NOS (462) - C - Pharyngitis, acute (381.02) - C - ACUTE MUCOID OTITIS MEDIA (V77.0) - C - Screening, thyroid disorders (V77.1) - C - Screening, diabetes (V82.9) - C - Screening, vitamin d deficiency (278.00) - C - Obesity (683) - C - Adenitis, acute (cervical) Rx: Cephalexin 500 mg Cap, 1 Capsule(s), PO, BID, 10 days, for a total of 20, start on February 23, 2011, end on March 04, 2011. Hydrocodone-Acetaminophen 5 mg-325 mg Tab, 1 Tablet(s), PO, TID PRN, 10 days, for a total of 10, start on February 23, 2011, end on March 04, 2011. Plan: She was given this form: 'Patient Medication Summary'. Patient Instructions: 1) on CHantix -will quit smoking 2) URI: vaporizer, Vicks, irrigation with or without baking soda and salt,mucinex 1200mgm BID/ 3) asks for vidodan for the pain then asks for codeine cough syrup Became upset when I discussed w her that we rarely give narcotics for cough. Looked on [place] site: had 10 of vidodan in 09-21 and 10 hydrocodone in 11-22 4)OFF WORK NOTE Apri l and 2010 RTW 02-27-11Sun documented in this encounter Plan of Treatment Not on file documented as of this encounter Visit Diagnoses Not on filedocumented in this encounter Care Teams Fan Blade Aligner Relationship Specialty Start Date End Date June Frye MD [address] [place] [address] PCP - General 07/15/03 12/15/15 Kendy Mckeon PA-C [address] [place] [address] PCP - General Physician Health Physicist 12/16/15 07/19/16 Manuel Kim MD [address] [place] [address] PCP - General Family Practice 07/20/16 Manuel Kim MD [address] [place] [address] [place] FREEM[place] [address] PCP - Assigned PCP 07/23/16 01/14/19 Manuel Kim MD [address] [facility] [place] [address] Assigned PCP 07/23/16 03/05/21 documented as of this encounter
--- OUTSIDE RECORDS SUMMARY | 2025-01-26 00:35 | XMS_ITS | Encounter Summary ---
Author Organization [place] Address [address] [facility] 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) [address] [phone] Marielena Souza MD Social History Tobacco Use Types Packs/Day Years Used Date Smoking Tobacco: Every Day Cigarettes 0.5 6 Alcohol Use Standard Drinks/Week Comments Yes 0 (1 standard drink = 0.6 oz pur e alcohol) 6-7 drinks/week Comments No Sex and Gender Information Value Date Recorded Sex Assigned at Not on file Legal Sex Female 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 Citalopram 40 mg Tab, 1 Tablet(s), PO and daily. Cephalexin 500 mg Cap, 1 Capsule(s), PO, BID, 10 days, for a total of 20, start on February 23, 2011 and end on March 04, 2011. Hydrocodone-Acetaminophen 5 mg-325 mg Tab, 1 Tablet(s), PO, TID PRN, 10 days, for a total of 10, start on February 23, 2011 and end on March 04, 2011. ROS: None PE: None Dx: None Rx: None Plan: Vitamin D 05/22 Patient Instructions: None documented in this encounter Plan of Treatment Not on file documented as of this encounter Visit Diagnoses Not on filedocumented in this encounter Care Teams Supervisor Shipping Room Relationship Specialty Start Date End Date June Frye MD [address] [place] [address] PCP - General 07/15/03 12/15/15 Kendy Mckeon PA-C [address] [place] [address] PCP - General Physician Critical Power Technician 12/16/15 07/19/16 Manuel Kim MD [address] [place] [address] PCP - General Family Practice 07/20/16 Manuel Kim MD [address] [place] [address] [place] FREEMAN [address] PCP - Assigned PCP 07/23/16 01/14/19 Manuel Kim MD [address] [facility] [place] [address] Assigned PCP 07/23/16 03/05/21 documented as of this encounter
--- OUTSIDE RECORDS SUMMARY | 2025-01-26 00:35 | XMS_ITS | Encounter Summary ---
Author Organization [facility] Address [address] [place] [address] Care Team Providers Care Executive Vice President Business Development Name Role Phone None, Pcp Primary Care Provider Unavailabl e Encounter Details Date Type Department Care Team (Late st Contact Info) Description 07/25/2023 Telephone [facility] Rheumatology [address] [place] [address] Miroslava Hsu MD [address] [place] [address] Social History Tobacco Use Types Packs/Day Years Used Date Smoking Tobacco: Never Assessed Comments Unknown Sex and Gender Information Value Date Recorded Sex Assigned at Not on file Legal Sex Female 2:07 PM CDT Gender Identity Not on file Sexual Orientation Not on file documented as of this encounter Plan of Treatment Not on file documented as of this encounter Visit Diagnoses Not on filedocumented in this encounter Care Teams Executive Vice President Business Development Relationship Specialty Start Date End Date None, Pcp [address] [place] [address] PCP - General Software Development Test Engineer 07/06/23 documented as of this encounter
--- OUTSIDE RECORDS SUMMARY | 2025-01-26 00:35 | XMS_ITS | Encounter Summary ---
Author Organization [place] Address [address] [facility] [place] [address] Care Team Providers Care Operator Ground Based Air Defence Name Role Phone June Frye MD Primary Care Provider Kendy Mckeon PA-C Primary Care Provider + Manuel Kim MD Primary Care Provider [phone] Manuel Kim MD Unavailable Manuel Kim MD Unavailable Encounter Details Date Type Department Care Team (Late st Contact Info) Description 05/18/[address] [phone] June Frye MD [address] [place], [place] [id number] [facility] Social History Tobacco Use Types Packs/Day Years Used Date Smoking Tobacco: Every Day Cigarettes 0.5 6 Smokeless Tobacco: Never Alcohol Use Standard Drinks/Week Comments Yes 0 (1 standard drink = 0.6 oz pur e alcohol) 6-7 drinks/week Comments No Sex and Gender Information Value Date Recorded Sex Assigned at Not on file Legal Sex Female 4:23 AM SENIOR DATA WAREHOUSE ARCHITECT Gender Identity Not on file Sexual Orientation Not on file 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 Not on file Not on file documented as of this encounter Plan of Treatment Not on file documented as of this encounter Visit Diagnoses Diagnosis EMERGENCY DEPT- Primary documented in this encounter Care Teams Operator Ground Based Air Defence Relationship Specialty Start Date End Date June Frye MD [address] [place] [address] PCP - General 07/15/03 12/15/15 Kendy Mckeon PA-C [address] [place] [address] PCP - General Physician Drilling Assistant 12/16/15 07/19/16 Manuel Kim MD [address] [place] [address] PCP - General Family Practice 07/20/16 Manuel Kim MD [address] [place] [address] [place] FREEMAN [address] PCP - Assigned PCP 07/23/16 01/14/19 Manuel Kim MD [address] [place] [address] [place] [address] Assigned PCP 07/23/16 03/05/21 documented as of this encounter
--- OUTSIDE RECORDS SUMMARY | 2025-01-26 00:35 | XMS_ITS | Continuity of Care Document ---
Author Organization [facility] Address [address] [place] [address] Phone Care Team Providers Care Dividing Machine Operator Name Role Phone Sourav IZAGUIRRE, Gordo Unavailable Unavailable Allergies, Adverse Reactions, Alerts Substance Reaction Status Criticality No Known Allergies Active No Inform ation Medications Medication Instructions Dosage Effective Dates (start - stop) Status Comments COSENTYX UNOREADY PEN (unknown strength) inject 300 mg by subcutaneous route every 4 weeks in the abdomen, thigh, or outer area of upper arm (rotate sites) Not Available - Active venlafaxine besylate ER 112.5 mg tablet,extended release 24 hr take 1 tablet by oral route every day 112.5 MG - Active Lamictal 150 mg tablet take 1 tablet by oral route every day 150 MG - Active Vyvanse 60 mg capsule take 1 capsule by oral route every day in the morning 60 MG - Active Procedures Procedure Date X-Ray Exam Sacroiliac Joints X-Ray Exam Cervical 2 & 3v Office/Outpatient Visit, New Complex e/m visit add on Routine Venipuncture Specimen Handling Rbc Sed Rate, Automated CReactive Protein Vitamin D 25 Hydroxy Complete Cbc WAuto Diff Wbc CCP Antibody Rheumatoid Factor, IGM Rheumatoid Factor, IGG, IGA Assay Of Serum Albumin Bilirubin, Total Assay Of Creatinine Assay Alkaline Phosphatase Transferase (Ast) (Sgot) Alanine Amino (Alt) (Sgpt) Advance Directives Directive Yes / No Effective Date File Name No Information Encounters Encounter Description Practice Location Reason(s) For Visit Diagnoses Date Provider Providers Copied on Encounter [facility], [address], [place], [address], [place] tel:[phone] [facility], No Information [address] Sourav [address], [place], [address], [place]. tel:[phone] Referring Provider: Gordo Ashford, [address], [place], [address]. tel:[phone] Office/Outpa tient Visit, New [facility], [address], [place], [address], [place] tel:[phone] [facility], PsoriasisOthe r low back painOther group home (current) drug therapy [address] Sourav Caro. [address], [address], [place], [address], [place]. tel:[phone] Referring Provider: Gordo Ashford, [address], [place], [address]. tel:[phone] Family History Family Member Type Diagnosis Age At Onset Father Problem Psoriasis Payers Payer name Insurance type Covered republican ID huy simeon(s) [facility] [id number] Social History Type Description Quantity Date Captured Comments Alcohol Use Details Unknown Caffeine Use Details Unknown Tobacco Use Status No Information Smoking Status No Information Sex Female Chief Complaint And Reason For Visit No Information Reason For Referral Reason For Referral No Information Plan Of Treatment Date Type Action Status Appointment Hailey Evans BOOKED Future Order: Radiology Order Ce rvical Spine X-ray (2 or 3 views) ([id number]), Sent on: Sent Future Order: Radiology Order Sa croiliac Joint X-ray (3+ views) ([id number]), Sent on: Sent History Of Present Illness Encounter Date Complaint History Of Prese nt Illness No Information Functional Status Date Functional Assessmen t No Information Instructions Date Instruction Additional Infor mation No Information Assessments Type Assessment Date No Information Patient Care Teams Name Effective Dates (start - stop) Status Members No Information
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
--- OUTSIDE RECORDS SUMMARY | 2025-01-26 00:35 | XMS_ITS | Encounter Summary ---
Author Organization [facility] Address [address] [facility] [address] Care Team Providers Care Baling Machine Tender Name Role Phone June Frye MD Primary Care Provider [phone] Kendy Mckeon PA-C Primary Care Provider + Manuel Kim MD Primary Care Provider [phone] Manuel Kim MD Unavailable Manuel Kim MD Unavailable Encounter Details Date Type Department Care Team (Late st Contact Info) Description 02/24/2011 Clinic Report (Stone Planer) [address] [phone] Marielena Souza MD Social History Tobacco Use Types Packs/Day Years Used Date Smoking Tobacco: Every Day Cigarettes 0.5 6 Alcohol Use Standard Drinks/Week Comments Yes 0 (1 standard drink = 0.6 oz pur e alcohol) 6-7 drinks/week Comments No Sex and Gender Information Value Date Recorded Sex Assigned at Not on file Legal Sex Female 4:23 AM BINMAN Gender Identity Not on file Sexual Orientation Not on file 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 Not on file Not on file Not on file Not on file Not on file Not on file Not on file documented as of this encounter Progress Notes * Marielena Souza MD - 10/04/2012 11:41 PM CST CC/HPI: None Current Medication: Citalopram 40 mg Tab, 1 [...] PE: None Dx: None Rx: None Plan: None Patient Instructions: None documented in this encounter Plan of Treatment Not on file documented as of this encounter Visit Diagnoses Not on filedocumented in this encounter Care Teams Baling Machine Tender Relationship Specialty Start Date End Date June Frye MD [address] [place] [address] PCP - General 07/15/03 12/15/15 Kendy Mckeon PA-C [address] [place] [address] PCP - General Physician Fund Director 12/16/15 07/19/16 Manuel Kim MD [address] [place] [address] PCP - General Family Practice 07/20/16 Manuel Kim MD [address] [place] [address] [place] [address] PCP - Assigned PCP 07/23/16 01/14/19 Manuel Kim MD NPI: [id number] [place] [address] DR NAI [place]ES, ALFONSO [address] Assigned PCP 07/23/16 03/05/21 documented as of this encounter
--- OUTSIDE RECORDS SUMMARY | 2025-01-26 00:35 | XMS_ITS | Clinical Summary ---
Author Organization [facility] Address [address] [place] [address] Care Team Providers Care Real Estate Manager Name Role Phone None, Pcp Primary Care Provider Unavailabl e Allergies No known active allergies Medications etonogestrel-elut ing contraceptive device 68 MG implant 1 each by Implant route 1 (one) time Active lamoTRIgine (LaMICtal) 25 MG tablet Take 1 tablet (25 mg total) by mouth 1 (one) time each day 3 Active lamoTRIgine (LaMICtal) 200 MG tablet Take 1 tablet (200 mg total) by mouth 1 (one) time each day in the morning 3 Active ALPRAZolam (XANAX) 0.5 MG tablet Take 1 tablet (0.5 mg total) by mouth 2 (two) times a day if needed 3 Active Vyvanse 40 MG capsule Take 1 capsule (40 mg total) by mouth 1 (one) time each day in the morning Active venlafaxine XR (EFFEXOR-XR) 150 MG 24 hr capsule Take 1 capsule (150 mg total) by mouth 1 (one) time each day in the morning 3 Active QUEtiapine (SEROquel) 25 MG tablet TAKE ONE TABLET BY MOUTH IN THE EVENING -MAY START WITH 1/2 TABLET (INSTEAD OF A WHOLE TABLET) IF DESIRED 3 Active Retin-A 0.025 % cream APPLY PEA SIZE AMOUNT TO FULL FACE ON SUNDAY, SUNDAY AND SUNDAY FOR 14 DAYS THEN NIGHTLY TOLERATED AND FOLLOW WITH MOISTURIZER 3 Active clobetasol (TEMOVATE) 0.05 % ointmentIndicatio ns:Corticosteroid -Responsive Dermatosis Apply 1 application topically 2 (two) times a day if needed (psoriasis) Apply to trunk and extremities for 2 weeks, then take 1 week off and repeat as needed. 60 g 11 3 Active benzoyl peroxide (BENZAC AC) 10 % external washIndications:F olliculitis Apply topically 1 (one) time each day 227 g 11 3 Active clindamycin (Cleocin-T) 1 % lotionIndications :Folliculitis Apply topically 2 (two) times a day Apply to affected areas until resolution for folliculitis. 60 mL 6 3 Active Immunizations Name Administration Dates Next Due HPV 9-Valent 01/06/2009,05/23/2007 Hep A, Unspecified 01/06/2009,05/23/2007 Influenza, Trivalent, PF 11/18/2012 TD Preservative Free 05/26/1997 Tdap 07/19/2017,05/18/2008,05/23/2007 Social History Tobacco Use Types Packs/Day Years Used Date Smoking Tobacco: Never Assessed Comments Unknown Sex and Gender Information Value Date Recorded Sex Assigned at Not on file Legal Sex Female 2:07 PM CDT Gender Identity Not on file Sexual Orientation Not on file Last Filed Vital Signs Vital Sign Reading Time Taken Comments Blood Pressure 137/99 07/06/2023 10:38 AM CDT Pulse 106 07/06/2023 10:38 AM CDT Temperature - - Respiratory Rate - - Oxygen Saturation - - Inhaled Oxygen Concentration - - Weight 71.2 kg (156 lb 14.4 oz) 023 10:38 AM CDT Height - - Body Mass Index - - Plan of Treatment Health Maintenance Due Date Last Done Comments Pap Smear 02/17/2022 02/17/2019 COVID-19 Vaccine ( season) 2024 Influenza Vaccine (#1) 2024 11/18/2012 DTaP,Tdap,and Td Vaccines (5 - Td or Tdap) 07/19/2027 07/19/2017, 05/18/2008, 05/23/2007, Additional history exists HPV Vaccines Aged Out 01/06/2009, 12/14, 05/23/2007, Additional history exists No longer eligible based on patient's age to complete this topic Pneumococcal Vaccine: Pediatrics (0 to 5 Years) and At-Risk Patients (6 to 49 Years) Aged Out No longer eligible based on patient's age to complete this topic Insurance [facility] [employer] Care Teams Real Estate Manager Relationship Specialty Start Date End Date None, Pcp [address] [place] [address] PCP - General Mold Tooler 07/06/23
--- OUTSIDE RECORDS SUMMARY | 2025-01-26 00:35 | XMS_ITS | Encounter Summary ---
Author Organization [facility] Address [address] [facility] [place] [address] Care Team Providers Care Mushroom Grower Name Role Phone June Frye MD Primary Care Provider [phone] Kendy Mckeon PA-C Primary Care Provider + Manuel Kim MD Primary Care Provider [phone] Manuel Kim MD Unavailable Manuel Kim MD Unavailable Encounter Details Date Type Department Care Team (Late st Contact Info) Description 02/22/2011 Clinic Report (Residency Coordinator) [address] [phone] Yusuf Sy MD XXX RETIRED AUG 2022 [place] [address] Social History Tobacco Use Types Packs/Day Years Used Date Smoking Tobacco: Every Day Cigarettes 0.5 6 Alcohol Use Standard Drinks/Week Comments Yes 0 (1 standard drink = 0.6 oz pur e alcohol) 6-7 drinks/week Comments No Sex and Gender Information Value Date Recorded Sex Assigned at Not on file Legal Sex Female 4:23 AM CRUST SORTER Gender Identity Not on file Sexual Orientation Not on file 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 Not on file Not on file Not on file Not on file Not on file Not on file Not on file documented as of this encounter Progress Notes * Yusuf Sy MD - 10/04/2012 11:43 PM CST CC/HPI: None ROS: None PE: None Dx: (462) - C - Pharyngitis, acute Rx: None Plan: None Patient Instructions: None documented in this encounter Plan of Treatment Not on file documented as of this encounter Visit Diagnoses Not on filedocumented in this encounter Care Teams Mushroom Grower Relationship Specialty Start Date End Date June Frye MD [address] [place] [address] PCP - General 07/15/03 12/15/15 Kendy Mckeon PA-C [address] [place] [address] PCP - General Physician Physician Underwriter 12/16/15 07/19/16 Manuel Kim MD [address] [place] [address] PCP - General Family Practice 07/20/16 Manuel Kim MD [address] [place] [address] ALFONSO FREEMAN [address] PCP - Assigned PCP 07/23/16 01/14/19 Manuel Kim MD [address] [place] [address] [place]ON[place] F[place]EMAN [address] Assigned PCP 07/23/16 03/05/21 documented as of this encounter
== END 2025-01-26 01:09 | disposition home or self-care (01) ==
LOC: ED 01-26 00:32
PROVIDERS: Emergency Provider Emergency Medicine
DX: H60.92 Unspecified otitis externa, left ear (principal); H91.90 Unspecified hearing loss, unspecified ear
CPT/HCPCS: 99283; 99284